=== PATIENT | female | born 1995 | race Caucasian/White ===

== ENCOUNTER 2021-11-03 08:03 | Outpatient (CLI) | payer BC, SELFPAY ==
[2021-11-07 09:30] LABS: Progesterone, HPLC-MS/MS 8.34 ng/mL
== END 2021-11-03 08:04 | disposition home or self-care (01) ==
LOC: FRMLAB 08:05
PROVIDERS: PCP Registered Nurse; Visit Provider Registered Nurse
DX: N97.9 Female infertility, unspecified (principal)
CPT/HCPCS: 36415; 84144

== ENCOUNTER 2021-12-02 07:54 | Outpatient (CLI) | payer BC, SELFPAY ==
[2021-12-07 00:49] LABS: Progesterone, HPLC-MS/MS 13.91 ng/mL
== END 2021-12-02 07:55 | disposition home or self-care (01) ==
LOC: FRMREF 07:54
PROVIDERS: PCP Registered Nurse; Visit Provider Registered Nurse
DX: N97.0 Female infertility associated with anovulation (principal)
CPT/HCPCS: 84144

== ENCOUNTER 2021-12-31 14:55 | Outpatient (CLI) | payer BC, SELFPAY ==
[2022-01-07 07:43] LABS: Progesterone, HPLC-MS/MS 0.89 ng/mL
== END 2021-12-31 14:56 | disposition home or self-care (01) ==
PROVIDERS: PCP Registered Nurse; Visit Provider Registered Nurse
DX: N97.9 Female infertility, unspecified (principal)
CPT/HCPCS: 84144